=== PATIENT | female | born 1930 ===

== ENCOUNTER 2016-11-30 14:00 | Inpatient (IN) | payer MEDICARE, BC ==
[~2016-11-30] VITALS: Ht 170.2 cm; Wt 84.3 kg
--- NOTE | ~2016-11-30 | CON ---
PATIENT'S NAME: YRIS PRIDE [facility] AGE: 86 Y [address] ROOM: [id number] [place], [place] [address] LOCATION: [facility] ADMIT DATE: 11/30/2016 Consultation DISCHARGE DATE: FAMILY PHYSICIAN: Topher Morrison MD ATTENDING PHYSICIAN: JUANCARLOS ARAUJO DATE OF CONSULTATION: 11/30/2016 REFERRING PHYSICIAN: JONATHAN LUGO REFERRING PHYSICIAN: Dr. Araujo. REASON FOR CONSULTATION: Hyponatremia. HISTORY OF PRESENT ILLNESS: An 86-year-old, female with history of hypertension, on losartan and hydrochlorothiazide and hypothyroid, on Synthroid. Had an insect bite in gluteal area about a week ago and then started on Bactrim, developed nausea, vomiting, and poor oral intake. Yesterday, her neighbor found her after a fall and having mild confusion, presented to [facility], and found to have a sodium of 103. However, patient was managed conservatively at [facility] with 1.5 L of normal saline over the next 24 hours and sodium chloride tablets. Sodium improved from 103 to 112 on transfer. During my evaluation, the patient appears to be alert and oriented x3, although there was a reported confusion yesterday. She denies any fevers or chills. No significant weakness. No complaint of chest pain, shortness of breath, orthopnea, or PND. No urinary symptoms including dysuria, urgency, hesitancy, or nocturia. The patient goes to her PCP but really very infrequently, and last visit to her PCP was probably in 2016. We do not have any baseline sodium level to compare. REVIEW OF SYSTEMS: GENERAL: No fever. No chills or rigor. HEENT: No sore throat. No sinus congestion. CVS: No chest pain. No exertional shortness of breath. No leg swelling. RESPIRATORY: No shortness of breath. No cough. No wheezing. GENITOURINARY: No pain with urination. No increased frequency. No nocturia. GASTROINTESTINAL: No abdominal pain. No abdominal distention. No nausea or vomiting. NEUROLOGIC: No weakness. No seizures. SKIN: No rash. No itching. ALLERGIES: No seasonal allergy. No hayfever. ENDOCRINE: No heat intolerance. No cold intolerance. PSYCHIATRIC: No sadness. No crying spells. No history of panic attack. PAST MEDICAL HISTORY: 1. Hypertension. 2. Hypothyroidism. PATIENT'S NAME: [facility] AGE: 86 Y [address] ROOM: [id number] [place], [place] [address] LOCATION: [facility] ADMIT DATE: 11/30/2016 Consultation DISCHARGE DATE: FAMILY PHYSICIAN: Topher Morrison MD ATTENDING PHYSICIAN: JUANCARLOS ARAUJO MEDICATIONS: 1. Losartan and hydrochlorothiazide 100/25 mg p.o. daily. 2. Levothyroxine 50 mcg p.o. daily. ALLERGIES: BACTRIM; NAUSEA AND VOMITING. CEFTRIAXONE CAUSES DIARRHEA. AVELOX CAUSES DIARRHEA. LISINOPRIL CAUSES ITCHINESS. PAST SURGICAL HISTORY: 1. Appendectomy. 2. Right hip surgery in the past. 3. Cataract surgery in the past. SOCIAL HISTORY: Denied smoking, alcohol, or illicit drug use. FAMILY HISTORY: Father with a heart problem at old age which she could not remember. Mother at old age from stroke. PHYSICAL EXAMINATION: VITAL SIGNS: Blood pressure 160s over 70s, pulse 60, respiratory rate 20, and 98% saturation on room air. GENERAL: Not in apparent distress. HEAD: Moist mucous membranes. Bilateral PERRLA, EOMI. NECK: No JVD, thyromegaly or lymphadenopathy. CVS: S1 and S2 normal, regular rate and rhythm. No murmur, rub, gallop. CHEST: Bilateral air entry equal. No wheeze or rales. ABDOMEN: Soft, nontender, nondistended. Bowel sounds present. EXTREMITIES: No cyanosis, clubbing, jaundice. No dependent edema. MUSCULOSKELETAL: No limitation of range of motion. SKIN: No pallor, cyanosis, icterus. [employer]EL[employer]: Alert and oriented x3. No gross findings. LABORATORY DATA: CBC; hemoglobin 12.6, WBC 10.5, and platelets 195,000. Chemistry; sodium 112, potassium 3.8, chloride 79, bicarbonate 23, BUN 6, creatinine 0.7, glucose 97, and calcium 7.8. LFTs; 71/0.8/44/33. Uric acid is 1.4. Total protein 6.2, albumin 3.3, serum osmolality 224, and urine osmolality 348. TSH 2.670. PATIENT'S NAME: [facility] AGE: 86 Y [address] ROOM: [id number] [place], [place] [address] LOCATION: [facility] ADMIT DATE: 11/30/2016 Consultation DISCHARGE DATE: FAMILY PHYSICIAN: Topher Morrison MD ATTENDING PHYSICIAN: JUANCARLOS ARAUJO ASSESSMENT AND PLAN: 1. Hyponatremia, euvolemic, hypotonic, possibly acute exacerbation of chronic hyponatremia, although we do not have any past labs to compare. The reason we think it is an acute exacerbation of chronic hyponatremia because even with a very low serum sodium, the patient does not have any significant [employer]ELOPER symptoms and is tolerating quite well. I do not see any reason to give 3% normal saline at this point, the patient's sodium has improved from 103 to 112 in the past 24 hours which is really in the acceptable range. We will restrict the total fluid up to 800 mL/h for now and we will continue normal saline. We will give 100 mL/h for 10 hours and then we will drop it down to 50 mL/h. Regarding possible etiology, I think it is multifactorial, and the patient was on hydrochlorothiazide which was probably contributing to the underlying chronic hyponatremia. The Bactrim, the pain induced inappropriate ADH release, and poor osmolal intake with nausea and vomiting over the last 7 days hindering free water excretion, probably all contributed to the underlying hyponatremia. 2. Regarding correction rate we will goal at 0.5 mEq/hour and up to 10 mEq per day. We will check serum sodium and serum osmolality and urine sodium and urine osmolality every 6 hourly. For sake of completion of the workup for syndrome of inappropriate secretion of antidiuretic hormone, we will do a CT chest and CT brain without contrast to look for any underlying parenchymal pathology. Urine osmolality at this point, although inappropriately high but still not very significantly high, but if she continues to take a high-protein diet urine osmolality can go up. If it goes up more than 450, we may need to stop isotonic normal saline because then that can cause further drop in serum sodium level. As mentioned above, the patient had been encouraged to consume a high- protein diet. Please monitor intake and output strictly, daily standing weight, and we will also do cortisol at 7:00 a.m. to rule out adrenal insufficiency. TSH within normal range. 3. Hypertension. Her blood pressure is above the acceptable range. We will hold the losartan and hydrochlorothiazide at this point, and we will start with amlodipine 10 mg p.o. daily, and we will give her one dose at this point. 4. Hypothyroidism. TSH within normal limits. We will continue Synthroid 50 mcg daily. 5. Deep venous thrombosis prophylaxis. Once CT brain rules out any intracranial bleed, we may restart heparin prophylaxis for now and put her on sequential compression devices. 6. The patient should be placed in ICU for close monitoring of serum sodium and clinical status. Please call us with any questions or with repeat serum sodium level if there is any problem. Thank you for allowing me to participate in this patient's care. We will closely monitor the patient's progress along with you. JONATHAN LUGO MD /modl /[id number] d: 12/01/16 1417 t: 12/03/16 1011, CONSULTATION REPORT
--- NOTE | ~2016-11-30 | DS ---
PATIENT'S NAME: YRIS PRIDE [facility] AGE: 86 Y [address] ROOM: [address] [address] LOCATION: [facility] ADMIT DATE: 11/30/2016 Discharge Summary DISCHARGE DATE: 12/03/2016 FAMILY PHYSICIAN: Topher Morrison MD ATTENDING PHYSICIAN: Alonso Jin FINAL DIAGNOSES: 1. Severe hyponatremia. 2. Essential hypertension. 3. Acute encephalopathy, now resolved. 4. Hypothyroidism. 5. Weakness and deconditioning. CONSULTANTS ON THE CASE: Dr. Pantoja with Nephrology. HOSPITAL COURSE: Please see details of admission in H and P by Dr. Jin. Briefly, the patient was admitted in transfer from [facility]. She had been there with significant hyponatremia, sodium level was 103. The patient did have some confusion. They have been giving her fluid resuscitation with normal saline and her sodium had improved from 103 to 112 on transfer. We continued normal saline. Dr. Pantoja was consulted on admission. The patient did have a fall without loss of consciousness and a CT of the head was ordered to rule out any acute hemorrhage or abnormality. We did get a Nephrology consult on 11/30. Hyponatremia was thought to be an acute exacerbation of her chronic hyponatremia, which was euvolemic and hypotonic in nature; thought it was secondary to hydrochlorothiazide and Bactrim use as well as poor osmolar intake. We did adjust her blood pressure medications and stopped her losartan and hydrochlorothiazide and started some amlodipine. The patient was placed on fluid restriction of 800 mL daily as well as a high-protein diet and normal saline. The patient's sodium on 12/01 was 114. We continued IV fluids. The patient's home medications were resumed including blood pressure medications as noted previously. The patient did not have any further encephalopathy. Sodium gradually rut to 116-119 and on the day of discharge it had risen to 131. It was felt that the patient could safely be discharged home with outpatient followup and monitoring. It was discussed with the patient about fluid restrictions and dietary intake prior to dismissal. The patient did mention some weakness on discharge and therapies were ordered on an outpatient basis. Both the patient and her daughter were agreeable to discharge plan. DIAGNOSTICS: One view of the chest x-ray was within normal limits. CT of the head without contrast shows mild ventriculomegaly consistent with mild deep brain atrophy, no acute hemorrhages or masses noted. CT scan of the chest without contrast was essentially negative, incidental findings of cholelithiasis and suspected renal cortical scarring on both sides. PATIENT'S NAME: YRIS PRIDE [facility] AGE: 86 Y [address] ROOM: [address] [address] LOCATION: [facility] ADMIT DATE: 11/30/2016 Discharge Summary DISCHARGE DATE: 12/03/2016 FAMILY PHYSICIAN: Topher Morrison MD ATTENDING PHYSICIAN: Alonso Jin LABORATORY DATA: Lactate on admission was 0.8. As mentioned, sodium on admission was 112, it did drop to 106 later on the and back climbed to 131 on the day of discharge. Rest of her chemistries remained unremarkable throughout her stay. Creatinine on the day of discharge was 0.6. Phosphorus level was slightly low on the day of discharge and was replaced with oral supplementation. On admission, CPK was 439, CK-MB was 9, troponin was less than 0.04. Uric acid was 1.4. Serum osmolality ranged from 224 to 278 on the day of discharge. Cortisol level was 19.7. TSH was 2.67. On admission, white blood cell count was 10.5, hemoglobin 12.6, hematocrit 33.9, and platelets 195. Urinalysis on the did have 15 mg of protein, 5 mg of ketones, and 50 of blood. Micro was negative. Random urine sodium on the day of admission was 70, it dropped down to 18 on the day prior to discharge; potassium in the urine was 23, chloride was 96. Urine osmo level on admission was 348, it dropped down to 119 and back up to 353 on the day of discharge. Urine creatinine was 57, and urine urea was 258. DISCHARGE INSTRUCTIONS: The patient is discharged home. Followup with Dr. Morrison in 3 to 5 days. She will follow up with Dr. Pantoja on 12/08/2016 at 10:00 a.m. Recommended the patient have renal magnesium and phosphorus levels with her primary care physician. Prescription given for physical therapy as an outpatient basis. Diet is high protein with 1000 mL per day fluid restriction per Renal. ACTIVITY: As tolerated. DISCHARGE MEDICATIONS: 1. Norvasc 5 mg daily. 2. Colace 100 mg daily p.r.n. 3. Levothyroxine 50 mcg daily. 4. K-Phos 1 tablet daily. 5. Tylenol 1000 mg every 6 hours as needed. We do appreciate participating in this patient's care, and thank you very much for the ability to serve them while hospitalized at [facility]. Time spent coordinating details of discharge was 35 minutes of which was spent coordinating with consulting physicians and Care Management, completion of medication reconciliation, education to the patient and family on the above- mentioned diagnoses. PADMINI BARBA FOR STEFF MANN MD PATIENT'S NAME: YRIS PRIDE [facility] AGE: 86 Y [address] ROOM: [place] [address] LOCATION: [facility] ADMIT DATE: 11/30/2016 Discharge Summary DISCHARGE DATE: 12/03/2016 FAMILY PHYSICIAN: Topher Morrison MD ATTENDING PHYSICIAN: Alonso Jin/bert /[id number] d: 12/04/16 1002 t: 12/10/16 1508, DISCHARGE SUMMARY
--- NOTE | ~2016-11-30 | CON ---
[facility] 86 Y [address] ROOM: [address] [address] [place] [facility] [place]MIT DATE: 11/30/2016 Consultation DISCHARGE DATE: 12/03/2016 FAMILY PHYSICIAN: Topher Morrison MD ATTENDING PHYSICIAN: Alonso Jni DATE OF CONSULTATION: 12/03/2016 REFERRING PHYSICIAN: Dr. Jin. REASON FOR CONSULT: Right buttocks ulcer. HISTORY OF PRESENT ILLNESS: This is a pleasant 86-year-old female patient who was admitted to [facility] with hyponatremia, nausea, and vomiting. She has a history of hypertension and hypothyroidism. She currently lives in [place], [place]. She notes on November 08, she suffered from a spider bite. She has been treating the site with Aloe at home. The patient completed an outpatient course of Bactrim. She notes much improvement to the site. She denies pruritus. She denies pain. She also endorses falling at home. She denies loss of consciousness. She reports a good oral intake. She is hoping to go home soon. She denies fevers chills, or sweats. She denies chest pain. She appears very spry for her age. PAST MEDICAL HISTORY: Hypertension and hypothyroidism. PAST SURGICAL HISTORY: Appendectomy and right hemiarthroplasty. FAMILY HISTORY: Per previous records, father had an GA and mother suffered from a stroke. SOCIAL HISTORY: The patient lives in [place], [place]. She denies tobacco, alcohol, or illicit drug use. ALLERGIES: LISINOPRIL, CEFTRIAXONE, AND MOXIFLOXACIN. PREVIOUS RECORDS ALSO NOTE BACTRIM CAUSING NAUSEA AND VOMITING LEADING TO HYPONATREMIA. CURRENT MEDICATIONS: [facility] 86 Y [address] ROOM: [address] [address] [place]: [facility] ADMIT DATE: 11/30/2016 Consultation DISCHARGE DATE: 12/03/2016 FAMILY PHYSICIAN: Topher Morrison MD ATTENDING PHYSICIAN: Alonso Jin Please refer to the medication administration record. PHYSICAL EXAMINATION: VITAL SIGNS: Temperature 97.6, pulse 64, respirations 18, blood pressure 145/70, and pulse oximetry 99% on room air. Height 5 feet 7 inches and weight 84.3 kg. GENERAL: The patient is alert and oriented x3. Pleasant with cares. Appears in no acute distress. Appears spry. HEENT: Head is normocephalic and atraumatic. Anicteric sclerae. ABDOMEN: Soft and nontender. EXTREMITIES. Deferred. SKIN: Right upper buttocks, close to hip, has a small scabbed area that measures 0.7 cm width x 0.6 cm length. Periwound is slightly erythemic. No induration or fluctuance. No drainage. No pain with palpation. LABORATORY DATA: Sodium 131, potassium 3.7, chloride 98, bicarbonate 25, BUN 15, creatinine 0.9, and glucose 85. Albumin 2.9. ASSESSMENT AND PLAN: Again, this is an 86-year-old female patient who was admitted to [facility] with hyponatremia, nausea, and vomiting. Wound care consult to evaluate a right buttocks spider bite. Right buttocks scab secondary to a spider bite. The area is in the upper buttocks quadrant and not over bony prominence. Improving per the patient and nursing staff. The patient likes to use Aloe to the site. I will instruct nursing to use Aloe [place] b.i.d. She notes she also has an Aloe Vera plant at home that she has used to the site. She can continue to do so when she gets home. No signs of infection noted. Appears to be healing nicely. Her primary care provider can check on it on d/c if she has further issues. I would like to thank Dr. Jin for this consult. ES PRADO APRN FOR MD HARIS REGALADO/bert /[id number] d: 12/03/161 t: 12/05/16 1630, CONSULTATION REPORT
--- NOTE | ~2016-11-30 | HP ---
PATIENT'S NAME: YRIS PRIDE [facility] AGE: 86 Y [address] ROOM: [id number] [place], [place] [address] LOCATION: [facility] ADMIT DATE: 11/30/2016 History & Physical DISCHARGE DATE: FAMILY PHYSICIAN: Topher Morrison MD ATTENDING PHYSICIAN: JUANCARLOS ARAUJO DATE OF SERVICE: CHIEF COMPLAINT: Nausea, vomiting, and acute encephalopathy. HISTORY OF PRESENT ILLNESS: This is an 86-year-old female who lives alone at home, and according to her, she had a spider bite on her right hip on November 08, 2016. The patient did not see any physician until last Saturday when she went to the [facility] outside facility. At [facility], over there, the patient was sent home with p.o. Bactrim. The patient has been taking Bactrim since last Saturday. The very next day, on last Saturday, the patient started having nausea and vomiting, and the patient was put on Zofran. The last time she took the Bactrim was on Saturday, which was November 27, 2016. However, her nausea and vomiting persisted, and last night, the patient fell down at home. The patient says that she lost balance and fell, but she denies any loss of consciousness. The patient was found by one of her friends who went to visit her, and the patient contacted her daughter who told the daughter to go to the ER at [facility]. The patient was brought to the [facility] last night on November 29, 2016, and a blood work on arrival over there on November 29, 2016, and the patient's blood work over there was remarkable for hyponatremia, sodium 103. Last time the sodium was checked on the record was in December 2015, and it was 139. Other blood work was remarkable for normal potassium at 4. Hypochloremia at 72. Bicarbonate was 23.5. Glucose 170. BUN 8. Creatinine 0.83. GFR more than 69. Calcium was low at 8.4. Liver function testing only remarkable for mild elevation of AST at 39. Also has leukocytosis, white blood cells 11.2. The patient was admitted and treated with normal saline, got a total of 1.5 L and also got 1 tablet of 1 g sodium chloride tablet. The patient was also given Xarelto 10 mg this morning. According to the family member, it is for DVT prophylaxis. This morning, the patient was still lethargic, but by noontime, the patient became more awake and was up, was talking and answering questions, was alert and oriented x3. The patient still looks somewhat sleepy, but is following commands and answering questions appropriately. The patient was later transferred here per daughter's request for further care. The patient also has been having poor appetite due to nausea and vomiting she was having and also says that her urine output has also been decreased. REVIEW OF SYSTEMS: PATIENT'S NAME: YRIS PRIDE [facility] AGE: 86 Y [address] ROOM: [place] [id number] LOCATION: [facility] ADMIT DATE: 11/30/2016 History & Physical DISCHARGE DATE: FAMILY PHYSICIAN: Topher Morrison MD ATTENDING PHYSICIAN: JUANCARLOS ARAUJO As mentioned in History of Present Illness. All other systems were reviewed and were negative except those mentioned in the History of Present Illness. PAST MEDICAL HISTORY: 1. Hypertension. 2. Hypothyroidism. ALLERGIES: 1. BACTRIM, NAUSEA AND VOMITING. 2. CEFTRIAXONE CAUSES DIARRHEA. 3. AVELOX CAUSES DIARRHEA. 4. LISINOPRIL, WHICH CAUSES ITCHINESS. HOME MEDICATIONS: 1. Losartan/hydrochlorothiazide 100/25 mg p.o. daily. 2. Levothyroxine 50 mcg p.o. daily. SOCIAL HISTORY: The patient denies any cigarette, illegal drug, or alcohol use. PAST SURGICAL HISTORY: 1. Appendectomy. 2. Right hip surgery in the past. 3. Cataract surgery in the past. FAMILY HISTORY: Father from heart problem at old age from a cause that she could not remember. Mother also at old age from stroke. PHYSICAL EXAMINATION: VITAL SIGNS: At the time of my dictation, temperature was 97.9, heart rate was 65, respirations were 16, blood pressure was 184/82, and saturation 98% on room air. GENERAL APPEARANCE: The patient was alert and oriented x3. Looked a bit sleepy, but followed commands and answered questions appropriately. HEENT: Pupils were equally round and reactive to light. Extraocular muscles intact. Anicteric sclerae. Nasal turbinates were normal bilaterally. Dry oral mucosa. NECK: No JVD. CARDIOVASCULAR: Regular rate and rhythm. No obvious murmur, rubs, or gallops. RESPIRATORY: Clear to auscultation. No rale. No rhonchi. No wheeze. No crackle. ABDOMEN: Obese, soft, nontender, and nondistended. Bowel sounds present. No palpable mass. PATIENT'S NAME: YRIS PRIDE [facility] AGE: 86 Y [address] ROOM: [facility] [place] [place] [address] LOCATION: [facility] ADMIT DATE: 11/30/2016 History & Physical DISCHARGE DATE: FAMILY PHYSICIAN: Topher Morrison MD ATTENDING PHYSICIAN: JUANCARLOS ARAUJO EXTREMITIES: She did have bilateral lower extremity edema in bilateral calves. There was no tenderness to palpation behind each calf. NEUROLOGIC: Cranial nerve 2 through 12 intact. The patient followed commands appropriately. Alert, but she looked a bit sleepy. Oriented x3. Finger-to- nose intact. No slurred speech. No facial droop. Pronator drift negative. Babinski negative. Proprioception and vibration intact. Muscle strength intact at 5/5 in all extremities. Sensation also intact. In general, unremarkable except for a bit sleepy in appearance. SKIN: On the right hip, near the right buttocks, there was a healed-looking bite. There was no tenderness. There was no drainage. Did not look infected. MUSCULOSKELETAL: No joint pain, and also no muscle pain. Range of motion intact. LABORATORY DATA: As mentioned in the History of Present Illness that was done from outside facility today. Currently, our labs are pending. ASSESSMENT AND PLAN: 1. Regarding her hyponatremia: Could be acute. Could be chronic. We do not have any baseline to compare from last year. Last time she had blood work, was done in December 2015. Sodium was 139. The patient looks dry on examination. This could be hypovolemic from gastrointestinal loss from nausea and vomiting which is induced by the Bactrim. Also, could be dehydration from taking hydrochlorothiazide at home. However, could also be syndrome of inappropriate secretion of antidiuretic hormone. Currently, the patient is talking and following commands and awake. The daughter says that she is still not her baseline, but way much better than this morning. The plan will be to get a blood work right now in our facility. Currently, it is pending. In addition, I will also check a UA and also urine electrolytes and also check serum and also urine osmolarity. I will get a chest x-ray, looking for any lung problem, any mass that could explain syndrome of inappropriate secretion of antidiuretic hormone, and also, I will get a CT scan of the head without contrast given that she had a fall and also to rule out any intracranial abnormality which could explain the syndrome of inappropriate secretion of antidiuretic hormone. I will get an EKG right now to confirm sinus rhythm also. Further plan will depend on the blood work, and then can make a decision. I will put a consult for nephrology. Currently, the labs are pending, and I will touch base with nephrology once the labs come back. For now, we will not give anything until labs come back. I have already discussed the case with on-call laborer yard Dr. Pantoja about the case in detail and recommended we wait for the blood work to come back, and we will make a decision. Further plan will depend on clinical course. 2. Regarding her hypertension: Hold her medications right now because it PATIENT'S NAME: YRIS PRIDE [facility] AGE: 86 Y [address] ROOM: [place] [address] LOCATION: [facility] ADMIT DATE: 11/30/2016 History & Physical DISCHARGE DATE: FAMILY PHYSICIAN: Topher Morrison MD ATTENDING PHYSICIAN: JUANCARLOS ARAUJO includes hydrochlorothiazide. Further plan will depend on the blood work, and I will touch base with nephrology to come up with a plan. 3. Regarding her hypothyroidism: We will check a TSH. Hold the home medication for now pending on the lab. 4. Regarding her deep venous thrombosis prophylaxis: We will get a CT of the head first to rule out any head bleed and then can consider pharmacological prophylaxis. 5. The patient will be moved to the ICU for further care and close monitoring. Time spent in care on the day of admission was 45 minutes where 25 minutes were spent on counseling and also coordination of care with specialist and also addressing all the questions and concerns that the patient and the patient's daughter had. The remainder of the time was spent on chart review, also on interview, and also on physical examination. Further plan will depend on clinical course. MD KAYLEIGH ZEPEDA/bert /[id number] D: [id number] T: [id number] HISTORY & PHYSICAL
[2016-11-30] MEDS ORDERED: LEVOTHROID (SY50 MCG PO (16:49)
[2016-11-30] MEDS ORDERED: COLACE100 MG PO (16:50)
[2016-11-30] MEDS ORDERED: TYLENOL EXTRA500 MG PO (16:51)
--- NOTE | 2016-11-30 17:11 | NUR ---
Patient is 86 yo femaled admitted this afternoon for hyponatremia and dehydration. Patient lives in [place] by herself in an apartment. Patient's daughter works at [employer]. Patient reports she got a bug bite on 11/08/16. She was treating it but is was getting worse and went in for antibiotics on 11/24. She was started on Bactrim. On 11/25, patient started having nausea and vomiting. Yesterday she fell and was transported to the hospital and admitted there in [place]. She is transferred here today for further cares. IV is infusing in left hand without erythema or edema noted at site. Patient is very pleasant. Daughter is very helpful with obtaining history. Education is given as documented. patient and daughter deny questions. Pneumatics are on bilat. calves. pt joanna well. call light is within reach. denies needs at this time. fall and allergy bracelets on, red socks on pt. Report is given to DANY Dodson.
[2016-11-30 18:28] LABS: BASOPHIL % 0.3 %; EOSINOPHIL % 0.2 %; HEMATOCRIT 33.9 % (30.0-46.0); HEMOGLOBIN 12.6 g/dL (10.0-15.0); IMMATURE GRANULOCYTE # 0.1 K/uL (0.0-0.3); IMMATURE GRANULOCYTE % 0.8 %; LYMPHOCYTE # 0.5 K/uL (0.8-4.0); MCH 30.4 pg (27.0-34.0); MCHC 37.2 gm/dL (32.0-36.5); MCV 81.7 fl (83.0-98.0); MONOCYTE # 0.8 K/uL (0.0-1.0); MONOCYTE % 7.6 %; MPV 9.1 fl (9.4-12.4); NEUTROPHIL # (ANC) 9.1 K/uL (1.8-7.8); NEUTROPHIL % 86.1 %; NRBC % 0 /100WBC (0-0.00); PLATELET COUNT 195 K/uL (150-450); RBC 4.15 M/uL (3.00-5.00); RDW-CV 12.2 % (11.9-14.6); WBC 10.5 K/uL (4.0-11.0)
[2016-11-30 18:31] LABS: INR - (THERAPEUTIC) 1.09 (0.92-1.07); PROTIME 11.5 SECONDS (9.8-11.4)
[2016-11-30 18:41] LABS: ALBUMIN 3.3 gm/dL (3.5-5.0); ALK PHOS 71 IU/L (33-138); ALT 34 IU/L (12-78); AST 44 IU/L (10-40); BLOOD UREA NITROGEN 6 mg/dL (6-24); CALCIUM 7.8 mg/dL (8.5-10.5); CO2 23 mMol/L (22-32); CREATININE 0.7 mg/dL (0.5-1.1); ESTIMATED GFR (MDRD EQUATION) > 60; MAGNESIUM 1.6 mg/dL (1.8-2.6); POTASSIUM 3.8 mMol/L (3.7-5.1); TOTAL BILIRUBIN 0.8 mg/dL (0.0-1.5); TOTAL PROTEIN 6.2 g/dL (6.0-8.4)
[2016-11-30 18:46] LABS: ANION GAP 13.8 (10.0-19.0); SODIUM 112 mMol/L (135-145)
[2016-11-30 18:47] LABS: CHLORIDE 79 mMol/L (96-110)
[2016-11-30 18:48] LABS: CPK 439 IU/L (21-215)
[2016-11-30 18:55] LABS: BILIRUBIN URINE NEGATIVE (NEGATIVE); BLOOD URINE 50 /UL (NEGATIVE); COLOR URINE YELLOW (YELLOW); GLUCOSE URINE NEGATIVE (NEGATIVE); KETONE URINE 5 mg/dL (NEGATIVE); LEUKOCYTES URINE NEGATIVE /UL (NEGATIVE); NITRITE URINE NEGATIVE (NEGATIVE); PH URINE 6.5 (4.0-8.0); PROTEIN URINE 15 mg/dL (NEGATIVE); SPEC GRAVITY URINE 1.015 (1.003-1.035); TURBIDITY URINE CLEAR (CLEAR); UROBILINOGEN URINE 1 mg/dL (NORMAL)
[2016-11-30 19:09] LABS: WBC URINE RARE #/HPF (NEGATIVE)
[2016-11-30 19:10] LABS: BACTERIA URINE NEGATIVE (NEGATIVE); EPITHELIAL URINE 0-2 #/HPF (NEGATIVE)
[2016-11-30 20:05] LABS: SODIUM 106 mEq/L (135-145)
[2016-11-30] MEDS ORDERED: HYZAAR 100-251 EACH PO (21:40)
[2016-12-01 00:49] LABS: SODIUM 114 mMol/L (135-145)
--- NOTE | 2016-12-01 02:33 | NUR ---
Significant Event: AAox3, denies N/T. PERRLA 3mm brisk. Occasional complaints of SHIELDS; tolerable without medication. Chronic hip pain relieved by Tylenol given last at 0040. Equal moderate strength throughout. Follows commands and moves spontaneously. Systolic 100-160's, HR 60-70's, absent edema, weak pedal pulses. L.S. clear and diminished throughout on RA. Bowel sounds active, patient had one small loose stool this shift. Frequeny in urination present. Transfers 2PA pivot to [facility] [place]. PIV L) hand infusing NaCl at 100mL/hr for 10 hours until 0830 then NaCl at 50mL/hr for goal of decreasing Na 0.5mEq/hr. Follow up: Serum Na, serum osmolality, urine Na, urine osmolality Q6Hrs, next at 0600. Bed/chair alarms on at all times. Fluid restriction 800mL QDay, high protein diet. Strict I & O's, standing daily weight. Seizure precautions.
[2016-12-01 07:06] LABS: SODIUM 116 mMol/L (135-145)
[2016-12-01 12:23] LABS: SODIUM 119 mMol/L (135-145)
--- NOTE | 2016-12-01 16:45 | NUR ---
PATIENT IS ALERT AND ORIENTED X3. MODERATE SRENGTH THROUGHOUT ALL EXTREMITIES. PUPILS ARE 3 AND BRISK. HEART MURMUR PRESENT NO SEIZURE ACTIVITY OBSERVED THROUGHOUT THE WHOLE SHIFT. SERUM SODIUM LEVEL AT 0600 WAS 116 AND OSMOLALITY AT 235. SODIUM WAS CHECKED AGAIN AT 1200 AND IMPROVED TO 119 AND OMOLALITY TO 242. HAS BEEN ASYMPTOMATIC OF SYMPTOMS OF HYPONATREMIA. NO BOWEL MOVEMENT FOR THIS SHIFT. FLUID RESRICTION OF 800 HAS BEEN MAINTAINED
[2016-12-01 18:28] LABS: SODIUM 121 mMol/L (135-145)
[2016-12-02 02:56] LABS: SODIUM 126 mMol/L (135-145)
--- NOTE | 2016-12-02 04:26 | NUR ---
Significant Event: Patient alert and oriented. Up with 1 assist. VSS on room air. Last sodium 126, next lab due at 0600. 800 ml fluid restriction continues. Tylenol given x1 at HS for discomfort with relief noted. NS continues at 50ml/hr. Pleasant and cooperative with cares. Rested throughout shift. Follow up: continue to monitor
[2016-12-02 05:37] LABS: ALBUMIN 2.8 gm/dL (3.5-5.0); BLOOD UREA NITROGEN 8 mg/dL (6-24); CALCIUM 7.9 mg/dL (8.5-10.5); CO2 24 mMol/L (22-32); CREATININE 0.7 mg/dL (0.5-1.1); ESTIMATED GFR (MDRD EQUATION) > 60; POTASSIUM 3.6 mMol/L (3.7-5.1); SODIUM 127 mMol/L (135-145)
[2016-12-02 05:38] LABS: ANION GAP 10.6 (10.0-19.0); CHLORIDE 96 mMol/L (96-110); PHOSPHORUS 1.3 mg/dL (2.5-4.9)
--- NOTE | 2016-12-02 14:53 | NUR ---
Assumed cares @1420 when Tx'd from ICU. AAOx3. Cooperative with cares. 1 assist, GB, walker. PIV s/l'd to RFA. VSS, afebrile, on RA. Tolerating high protein diet well. 1000ml fluid restriction/24hr. Possible d/c tomorrow.
--- NOTE | 2016-12-02 15:32 | NUR ---
PATIENT AMBULATED TO WHEELCHAIR. SODIUM LEVEL AT 0600 WAS 127. PATIENT'S APPETITE IMPROVED BEFORE TRANSFER. ALERT AND ORIENTED X3. DAUGHTER AND GRAND SON ACCOMPANIED THE NURSE AND STUDENT NURSE DURING THE TRANSFER.
[2016-12-03 06:24] LABS: ALBUMIN 2.9 gm/dL (3.5-5.0); ANION GAP 11.7 (10.0-19.0); CALCIUM 8.2 mg/dL (8.5-10.5); CHLORIDE 98 mMol/L (96-110); CO2 25 mMol/L (22-32); CREATININE 0.6 mg/dL (0.5-1.1); ESTIMATED GFR (MDRD EQUATION) > 60; POTASSIUM 3.7 mMol/L (3.7-5.1); SODIUM 131 mMol/L (135-145)
[2016-12-03 06:31] LABS: BLOOD UREA NITROGEN 15 mg/dL (6-24); PHOSPHORUS 1.5 mg/dL (2.5-4.9)
--- NOTE | 2016-12-03 08:22 | NUR ---
Pt. alert and oriented. Up with 1 assist with walker. RA. VSS - low pressures at times. 800ml restriction continues. High protein diet. IV to R) wrist area - saline locked. UA to be done in AM. Slept very well throughout night. Tylenol given x1 at 2200. Pleasant and cooperative with cares. Possible discharge to home today.
[2016-12-03] MEDS ORDERED: COZAAR50 MG PO (16:14)
[2016-12-03] MEDS ORDERED: NORVASC5 MG PO (16:18)
[2016-12-03] MEDS ORDERED: NEUTRA-PHOS (PHO1 EA PO (16:20)
--- NOTE | 2016-12-03 16:45 | NUR ---
DISCHARGE: Pt. was educated on new medications:norvasc and k-phos. Educated on hyponatremia d/c instructions and fall precautions. Daughter present during d/c, no questions or concerns. Verbalized understanding of teaching. IV removed by nurse. Left with all belongings and prescriptions. Taken to front door by aide and driven home by daughter. Daughter will stay with her until tomorrow to assist in cares.
== END 2016-12-03 17:15 | disposition disaster alternative care site (69) | DRG 640 ==
LOC: G3N 14:00 → GMSU 15:59 → GICU 19:13 → GMSU 12-02 14:10
PROVIDERS: Internal Medicine Nephrology; ADMIT Internal Medicine
DX: E87.1 Hypo-osmolality and hyponatremia (principal); G93.41 Metabolic encephalopathy; E86.1 Hypovolemia; G93.89 Other specified disorders of brain; I10 Essential (primary) hypertension; E03.9 Hypothyroidism, unspecified; R60.9 Edema, unspecified; Z88.1 Allergy status to other antibiotic agents; Z88.8 Allergy status to other drugs, medicaments and biological substances; T37.0X5A Adverse effect of sulfonamides, initial encounter
CPT/HCPCS: J2001; J7030

== ENCOUNTER → 2016-12-18 | Outpatient (CLI) | payer MEDICARE, BC ==
[~2016-12-18] MED LIST: COLACE100 MG PO; COZAAR50 MG PO; HYZAAR 100-251 EACH PO; LEVOTHROID (SY50 MCG PO; NEUTRA-PHOS (PHO1 EA PO; NORVASC5 MG PO; TYLENOL EXTRA500 MG PO
== END | disposition disaster alternative care site (69) ==
LOC: LGSMG 10:36
DX: N28.9 Disorder of kidney and ureter, unspecified (principal)